=== PATIENT | female | born 2000 | race Asian ===

== ENCOUNTER 2022-02-04 12:29 | Emergency (ER) | payer SELFPAY ==
[2022-02-04 12:37] VITALS: BP 126/78; PULSE 87; RESP 16; TEMP 35.8; O2SAT 98
--- NOTE | 2022-02-04 12:41 | ED.FEMALEGU ---
HPI - Female Genitourinary General Chief complaint: Urogenital-Female Stated complaint: UTI SYMPTOMS Time Seen by Provider: 02/04/22 12:41 Source: patient, RN notes reviewed and old records reviewed Mode of arrival: ambulatory Limitations: no limitations History of Present Illness HPI Narrative: 19-year-old female who presents to [facility] with complaints of burning with urination and frequency which started this morning she did take Azo also this morning. Patient denies any fever or chills no nausea vomiting or diarrhea patient states pelvic pain denies any flank pain.Patient reports is sexually active in new relationship, using condoms. Patient also states past history of UTI's denies any vaginal discharge or any itching. MD elicited complaint: UTI Pertinent past history: recurrent UTIs Treatment prior to arrival: OTC urinary analgesics Related Data Home Medications Medication Instructions Recorded Confirmed norgestimate-ethinyl estradiol tablet 02/04/22 0.18 mg/0.215mg/0.25mg-35 mcg(28)tablet (Tri-Sprintec (28)) Allergies Allergy/AdvReac Type Severity Reaction Status Date / Time No Known Allergies Allergy Verified 02/04/22 12:37 Review of Systems Review of Systems: CONSTITUTIONAL: Denies fever, chills, or sweats. EYES: Denies visual changes, redness, or discharge. ENT: Denies rhinorrhea, congestion, sore throat, or otalgia. CARDIOVASCULAR: Denies chest pain, palpitations, or edema. RESPIRATORY: Denies cough or dyspnea. GASTROINTESTINAL: Denies abdominal pain, reports pelvic pressure, no nausea vomiting or diarrhea GENITOURINARY: Positive for dysuria no visible hematuria. SKIN: Denies rash or itching. MUSCULOSKELETAL: Denies back pain, joint pain, or myalgia. NEUROLOGIC: Denies headache, numbness, or weakness. PSYCHIATRIC: Denies anxiety or depression. All systems reviewed & are unremarkable except as noted in HPI and below PMFSH Past Medical History Medical History (Updated 02/04/22 @ 12:54 by Sima Fong NP) UTI (urinary tract infection) Social History Social History (Updated 02/04/22 @ 13:09 by Sima Fong NP) Smoking status: Never smoker Alcohol intake: current Alcohol use details: Social Substance use type: does not use Living arrangements: with family Gender identity (if verbalized by the patient): Female Comments At time of signature, agree with nursing past medical, surgical, social and family history. There is no relevant family history pertinent to the presenting complaint Exam Narrative: GENERAL: Well-appearing, well-nourished, and in no acute distress. HEAD: Normocephalic, atraumatic. EYES: PERRLA and EOMI. ENT: Nares clear, no rhinorrhea or epistaxis. Mucous membranes moist. TMs normal with good light reflex throat pink no lesions or exudate tonsils not swollen NECK: Supple. No lymphadenopathy CHEST: Clear to auscultation. No respiratory distress. SaO2 98% on room air. HEART: Regular rate and rhythm. No murmur heard. Normal peripheral pulses. ABDOMEN: Soft, nontender to palpation nondistended, normal active bowel sounds. States some pelvic pressure no CVA tenderness on exam EXTREMITIES: Normal range of motion. No edema. SKIN: Warm, dry, no rash. NEURO: No focal deficits. Alert and oriented x3. Course Course Level of Care: Express Care Visit Vital Signs Vital signs: Vital Signs Temperature 35.8 C L 02/04/22 12:37 Pulse Rate 87 02/04/22 12:37 Respiratory Rate 16 02/04/22 12:37 Blood Pressure 126/78 02/04/22 12:37 Pulse Oximetry 98 02/04/22 12:37 Temperature 35.8 C L 02/04/22 12:37 Pulse Rate 87 02/04/22 12:37 Respiratory Rate 16 02/04/22 12:37 Blood Pressure 126/78 02/04/22 12:37 Pulse Oximetry 98 02/04/22 12:37 MDM - Female Genitourinary Differential Diagnosis Differential diagnosis: Likely urinary tract infection, cervicitis, vaginitis, cystitis and other (dysuria) Medical Records Attestation: Mikie jackson
== END 2022-02-04 13:01 | disposition home or self-care (01) ==
PROVIDERS: Emergency Provider Registered Nurse
DX: N39.0 Urinary tract infection, site not specified (principal)
CPT/HCPCS: 81003; 87077; 87086; 87186; 99213; G0463

== ENCOUNTER 2023-02-01 10:12 | Emergency (ER) | payer OTHER, SELFPAY ==
[2023-02-01 10:22] VITALS: BP 130/78; PULSE 72; RESP 16; TEMP 36.4; O2SAT 100
--- NOTE | 2023-02-01 10:46 | ED.GENADULT ---
HPI - General Adult General Chief complaint: Urogenital-Female Stated complaint: UTI SYMPTOMS Source: patient and RN notes reviewed History of Present Illness HPI narrative: 22-year-old female presents to urgent care with complaints dysuria started this morning. Patient states she has burning with urination. Denies any back pain flank pain abdominal pain, fevers, chills, or concerns for STIs. Patient did take azo prior to arrival. Related Data Home Medications Medication Instructions Recorded Confirmed norgestimate-ethinyl estradiol 1 tablet PO DAILY 02/04/22 0.18 mg/0.215mg/0.25mg-35 mcg(28)tablet (Tri-Sprintec (28)) dextroamphetamine-amphetamine 30 30 mg PO DAILY 02/01/23 02/01/23 mg tablet Allergies Allergy/AdvReac Type Severity Reaction Status Date / Time No Known Allergies Allergy Verified 02/01/23 10:32 Review of Systems Review of Systems: Pertinent positives and pertinent negatives per HPI. [facility]LY [facility] Past Medical History Medical History (Updated 02/01/23 @ 10:47 by Diamond Morgan APRN) UTI (urinary tract infection) Social History Social History (Updated 02/04/22 @ 13:09 by Sima Fong NP) Smoking status: Never smoker Alcohol intake: current Alcohol use details: Social Substance use type: does not use Living arrangements: with family Gender identity (if verbalized by the patient): Female Comments At the time of my signature, I reviewed and agree with the nursing past medical, surgical, social, and family history. There is no relevant family history pertinent to the patient complaint. Exam Narrative: GENERAL: This is a well-nourished, well-developed patient, in no apparent distress. HEAD: normocephalic, atraumatic. EYES: Sclera clear/white. Vision is grossly intact. EARS: External ears normal, auditory canals clear and without drainage. Hearing grossly intact. NOSE: External nose normal with no obvious nasal discharge, nares without redness, no rhinorrhea. THROAT: Mucous membranes moist, posterior pharynx clear. NECK: Neck supple, non-tender without lymphadenopathy, masses or thyromegaly. CARDIOVASCULAR: Regular rate and rhythm without murmurs, gallops, or rubs. RESPIRATORY: Clear to auscultation. Breath sounds equal bilaterally. No wheezes, rales, or rhonchi. GASTROINTESTINAL: Abdomen soft, non-tender, nondistended. Bowel sounds are active. No hepato-splenomegaly, or palpable masses. No guarding. SKIN: warm, intact with no suspicious lesions or rash, good texture and turgor. NEURO: awake, alert, and oriented to person, place and time. There were no obvious focal neurologic abnormalities. Course Course Level of Care: Express Care Visit Vital Signs Vital signs: Vital Signs Temperature 97.6 F 02/01/23 10:22 Pulse Rate 72 02/01/23 10:22 Respiratory Rate 16 02/01/23 10:22 Blood Pressure 130/78 02/01/23 10:22 Pulse Oximetry 100 02/01/23 10:22 Temperature 97.6 F 02/01/23 10:22 Pulse Rate 72 02/01/23 10:22 Respiratory Rate 16 02/01/23 10:22 Blood Pressure 130/78 02/01/23 10:22 Pulse Oximetry 100 02/01/23 10:22 reviewed Medical Decision Making MDM Narrative Medical decision making narrative: We will send a urine culture off to the lab; if the culture identifies an organism that the prescribed antibiotic will not treat, you will receive a phone call from an urgent care staff member and an appropriate antibiotic will be prescribed. -Your symptoms should begin to improve within a day of starting antibiotics. But you should finish all the antibiotic pills you get. Otherwise your infection might come back. -Also recommend: drink more fluid. It might help flush out germs, and it does no harm -Tylenol/ibuprofen as needed for pain -Follow-up with your primary care provider for urine recheck OR if your symptoms persist, change or worsen significantly before you can contact your personal physician then please, without delay, g
== END 2023-02-01 10:50 | disposition home or self-care (01) ==
PROVIDERS: Emergency Provider Nurse Practitioner Family
DX: N39.0 Urinary tract infection, site not specified (principal)
CPT/HCPCS: 81003; 87086; 99213; G0463

== ENCOUNTER 2023-07-19 12:27 | Emergency (ER) | payer OTHER, SELFPAY ==
--- NOTE | 2023-07-19 12:33 | ED.URI ---
HPI - URI/Sore Throat General Chief Complaint: Upper Respiratory Infection Stated Complaint: Chills;Sore Throat Time Seen by Provider: 07/19/23 12:33 Source: patient Mode of arrival: ambulatory Limitations: no limitations History of Present Illness HPI Narrative: Jackie is a 22-year-old female patient presenting to clinic today with complaints of sore throat and chills x3 days. She reports she has felt feverish however she does not know how high her temperature was. 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 Related Data Home Medications Medication Instructions Recorded Confirmed norgestimate-ethinyl estradiol 1 tablet PO DAILY 02/04/22 07/19/23 0.18 mg/0.215mg/0.25mg-35 mcg(28)tablet (Tri-Sprintec (28)) dextroamphetamine-amphetamine 30 30 mg PO DAILY 02/01/23 07/19/23 mg tablet Allergies Allergy/AdvReac Type Severity Reaction Status Date / Time No Known Allergies Allergy Verified 07/19/23 12:42 Review of Systems Review of Systems: Pertinent positives per HPI. Patient denies any rash, headache, visual changes, dizziness, cough, shortness of breath, chest pain, palpitations, nausea, vomiting, diarrhea, constipation, abdominal pain, or any urinary issues. PMFSH Past Medical History Medical History UTI (urinary tract infection) Social History Social History Smoking status: Never smoker Alcohol intake: current Alcohol use details: Social Substance use type: does not use Living arrangements: with family Gender identity (if verbalized by the patient): Female Comments At the time of my signature, I reviewed and agree with the nursing past medical, surgical, social, and family history. There is no relevant family history pertinent to the patient complaint. Exam Narrative: General: Well-developed, well nourished, in no apparent distress Head: Normocephalic, atraumatic Eyes: Pupils equally round and reactive to light bilaterally, EOM intact, sclera and conjunctive clear, no discharge, lids normal Ears: TMs intact and clear, ear canals clear, no drainage, grossly hearing normal. Nose: Nares patent, clear nasal discharge, no inflammation, no sinus tenderness. Mouth: Oropharynx red without lesions or masses, good dentition, MMM. Postnasal Neck: Supple, trachea midline, enlargement of anterior cervical nodes, no thyroid masses or goiter palpable. Cardio: Regular rate and rhythm, s1 and s2 normal, no murmur appreciated. Resp: Clear to auscultation bilaterally anteriorly and posteriorly, no rhonchi, rales, wheezing or rubs Course Course Emergency Course: Portions of this record may have been created with voice recognition software. Level of Care: Express Care Visit Vital Signs Vital signs: Vital signs reviewed MDM - URI/Sore Throat MDM Narrative Medical decision making narrative: At the time of visit patient is resting comfortably on the exam table. Strep screen was obtained and was negative in the clinic today. I suspect patient has URI pharyngitis. Patient appears to be nontoxic. Some supportive measures were discussed with the patient she voiced understanding of discharge instructions and agrees to treatment plan. Return precautions reviewed Differential Diagnosis Differential diagnosis: Likely upper respiratory infection, otitis media, sinusitis, viral infection, bronchitis, influenza, pharyngitis and other (COVID) Discharge Plan Discharge Clinical Impression: Upper respiratory infection Qualifiers: URI type: unspecified URI Qualified Code(s): J06.9 - Acute upper respiratory infection, unspecified Pharyngitis Qualifiers: Pharyngitis/tonsillitis etiology: unspecified etiology Qualified Code(s): J02.9 - Acute pharyngitis, unspecified Patient Disposition: Home, Self-Care Condition: Stable Instructions: Anti
[2023-07-19 12:41] VITALS: BP 110/72; PULSE 98; RESP 16; TEMP 36.7; O2SAT 100
== END 2023-07-19 12:53 | disposition home or self-care (01) ==
PROVIDERS: Emergency Provider Nurse Practitioner Family
DX: J06.9 Acute upper respiratory infection, unspecified (principal); J02.9 Acute pharyngitis, unspecified
CPT/HCPCS: 87081; 87880; 99213; G0463